=== PATIENT | female | born 1955 | race Caucasian/White ===

== ENCOUNTER → 2018-09-29 | Outpatient (CLI) | payer BC ==
--- NOTE | 2018-10-05 13:27 | MM ---
Reason for exam: clinical finding. Last mammogram was performed 4 months ago. History: Reductions of both breasts, 2015. Took estrogen for 10 years beginning at age 52. Physical Findings: Nurse did not find any significant physical abnormalities on exam. MG Diagnostic Mammo w CAD KATRINA Bilateral CC and MLO view(s) were taken. Prior study comparison: May 17, 2018, mammogram, performed at [facility]. April 17, 2017, mammogram, performed at [facility]. The breast tissue is heterogeneously dense. This may lower the sensitivity of mammography. There are benign appearing round, diffuse, regional calcifications bilaterally. There is chronic nodularity in the right breast. Asymmetric breast tissue in the right breast, stable posterior outer quadrant and left anterior outer quadrant. There is no discrete abnormality. These results were verbally communicated with the patient and result sheet given to the patient on 10/05/18. ASSESSMENT: Benign, BI-RAD 2 RECOMMENDATION: Routine screening mammogram of both breasts in 1 year.
--- NOTE | 2018-10-05 13:31 | USB ---
Reason for exam: additional evaluation requested from abnormal screening. History: Reductions of both breasts, 2015. Took estrogen for 10 years beginning at age 52. US Breast BILAT Right complete breast ultrasound includes all four quadrants, the retroareolar region and axilla. Finding demonstrates a 0.3 x 0.3 x 0.4cm lesion too small to characterize at 11 o'clock and a 1.9 x 0.5 x 3.4cm elongated, slightly hypoechoic at lateral upper position, relates to remainder dermis. Left complete breast ultrasound includes all four quadrants, the retroareolar region and axilla. Finding demonstrates no cystic or solid lesion seen. These results were verbally communicated with the patient and result sheet given to the patient on 10/05/18. ASSESSMENT: Probably benign, BI-RAD 3 RECOMMENDATION: Routine screening mammogram of both breasts in 1 year. Manage on a clinical basis with regard to skin based lesion no subcutaneous component.
== END | disposition home or self-care (01) ==
LOC: RADMAMWWP 12:10
PROVIDERS: ATTEND Internal Medicine Hematology & Oncology
DX: R68.89 Other general symptoms and signs (principal)
CPT/HCPCS: 77066

== ENCOUNTER 2018-09-30 13:29 | Day surgery (SDC) | payer BC ==
[2018-09-30] MEDS ORDERED: LIDOCAINE 1% 20 ML VIAL (10MG/ML) FOR IV START INTRADERMA ONE (14:24)
[2018-09-30] MEDS ORDERED: LACTATED RINGERS 1,000 ML IV ONE ×2 (14:24→16:45)
[2018-09-30] MEDS ORDERED: ONDANSETRON 4 MG/2 ML VIAL IVP ONE ×2 (14:27→16:16)
[2018-09-30] MEDS ORDERED: DEXAMETHASONE SOD PHOS (MDV) 100 MG/10 ML VIAL IVP ONE (14:27)
[2018-09-30] MEDS ORDERED: LIDOCAINE 1% INJ 10MG/ML (20 ML MDV) ONE (15:10)
[2018-09-30] MEDS ORDERED: ceFAZolin 1,000 MG VIAL ONE (15:10)
[2018-09-30] MEDS ORDERED: BUPIVACAIN-EPI 0.25%-1:200,000 30 ML VIAL SQ ONE ×3 (15:10→15:37)
[2018-09-30] MEDS ORDERED: PROPOFOL 10 MG/ML 20 ML VIAL IV ONE (15:10)
[2018-09-30] MEDS ORDERED: MIDAZOLAM 2 MG/2 ML VIAL ONE (15:10)
[2018-09-30] MEDS ORDERED: fentaNYL (PF) 50 MCG/ML 2 ML AMP ONE (15:10)
[2018-09-30] MEDS ORDERED: ceFAZolin 1,000 MG/50 ML BAG (PMX) IVPB ONE (15:11)
[2018-09-30] MEDS ORDERED: NALOXONE 0.4 MG/ML 1 ML VIAL IV PRN (15:52)
[2018-09-30] MEDS ORDERED: HYDROcodone/APAP 5-325MG 1 EACH TAB PO PRN (15:52)
--- NOTE | 2018-09-30 15:54 | P.OP ---
Date of Procedure: 09/30/18 Procedure(s) Performed: PREOPERATIVE DIAGNOSIS: Malignant skin lesion right flank POSTOPERATIVE DIAGNOSIS: Same PROCEDURE: Excision with intermediate closure 4cm SURGEON: Lili EBL: Minimal ANESTHESIA: General COMPLICATIONS: None OPERATIVE PROCEDURE: Patient placed in the operative table in the left decubitus position. The right flank was prepped and draped in usual sterile fashion. The skin was localized using Marcaine. An elliptical incision was made around the mass. Excision was 4 x 2 cm. Subcutaneous tissues were then reapproximated using 3-0 Vicryl sutures. The skin was closed using or 0 nylon sutures. Sterile dressings were applied. DISPOSITION: Stable to recovery room
[2018-09-30 16:10] VITALS: TEMP 97.6
[2018-09-30] MEDS ORDERED: METOCLOPRAMIDE 5 MG/ML 2 ML VIAL IVP ONE (16:24)
[2018-09-30 16:34] VITALS: RESP 16
[2018-09-30 17:08] VITALS: BP 164/86; PULSE 96
== END 2018-09-30 17:45 | disposition home or self-care (01) ==
LOC: OR 13:29
PROVIDERS: ATTEND Surgery
DX: C79.2 Secondary malignant neoplasm of skin (principal); C80.1 Malignant (primary) neoplasm, unspecified; I10 Essential (primary) hypertension; E66.9 Obesity, unspecified; Z68.33 Body mass index [BMI] 33.0-33.9, adult; Z85.820 Personal history of malignant melanoma of skin; K21.9 Gastro-esophageal reflux disease without esophagitis; R51 Headache; Z79.2 Long term (current) use of antibiotics; Z79.52 Long term (current) use of systemic steroids; Z79.899 Other long term (current) drug therapy; Z88.2 Allergy status to sulfonamides
CPT/HCPCS: 11603; 12032; J2250; J2765; J2405; J0690 ×2; J2001; J3010; J1100; J2704; 88305; 88341; 88342

== ENCOUNTER → 2018-10-08 | Outpatient (CLI) | payer BC ==
--- NOTE | 2018-10-09 08:00 | BMR ---
EXAMINATION TYPE: MR breast BILAT wo/w con DATE OF EXAM: 10/08/2018 COMPARISON: Diagnostic bilateral breast mammogram September 29, 2018 BI-RADS 2 and older outside mammo grams through 2017. Bilateral breast ultrasound September 29, 2018 BI-RADS 3. HISTORY: Rt breast nodules, Abn Tito CONTRAST: Multiplanar, multisequence images of the breasts were acquired utilizing 9.5 mL intravenous Gadavist gadolinium contrast. TECHNIQUE: A series of fat and water weighted images in the long and short axis views of both breasts are obtained in conjunction with dynamic contrast MRI with subtraction technique. Three-dimensional and additional postprocessing imaging is created on independent workstation and reviewed during offi cial interpretation of this study. FINDINGS: There is scattered fibroglandular cystic change noted bilaterally. Axial T2-weighted images show a few scattered and grouped thin-walled cysts bilaterally in both breasts likely corresponding to chronic nodularity on mammogram. Delayed postcontrast images show no suspicious intramammary adeno antonio bilaterally. There are a few benign subcentimeter lymph nodes towards the bilateral axilla. No concerning axillary adenopathy is present. No suspicious fat-containing masses are seen. There is mil d parenchymal background enhancement noted bilaterally. With regarding the right breast, there is no pathologic enhancing mass. No suspicious skin thickening is seen. Chest wall is intact. With regarding the left breast there is no obvious enhancing mass, focal distortion, or chest wall in vasion. No suspicious skin thickening is seen. IMPRESSION: No mammographic evidence for invasive malignancy in either breast. BI-RADS 2 benign findings right breast. BI-RADS 2 benign findings left breast. Recommendation: Manage dermal-based lesion on ultrasound right breast on clinical basis. Return to ro utine follow-up, patient is due for bilateral breast mammogram September 29, 2019 to be back on annual schedule.
== END | disposition home or self-care (01) ==
LOC: RADMRIMAIN 18:14
PROVIDERS: ATTEND Internal Medicine Hematology & Oncology
DX: C50.919 Malignant neoplasm of unspecified site of unspecified female breast (principal)
CPT/HCPCS: 77049; C8937; A9585

== ENCOUNTER → 2019-03-14 | Outpatient (CLI) | payer BC ==
--- NOTE | 2019-03-14 10:43 | BD ---
EXAMINATION TYPE: Axial Bone Density DATE OF EXAM: 03/14/2019 COMPARISON: NONE CLINICAL HISTORY: Breast cancer with hormone replacement therapy Height: 65.50 Weight: 204 FRAX RISK QUESTIONS: Alcohol (3 or more units per day): no Family History (Parent hip fracture): no Glucocorticoids (More than 3mos): no (Ex: prednisone, prednisolone, methylprednisolone, dexamethasone, and hydrocortisone). History of Fracture in Adulthood: yes, toe Secondary Osteoporosis: 1. Type 1 Diabetes: no 2. Hyperthyroidism: no 3. Menopause before 45: no 4. Malnutrition: no 5. Chronic liver disease: no Rheumatoid Arthritis: no Current Tobacco Use: no RISK FACTORS HISTORY OF: Back Surgery: yes, lower lumbar for a disc problem Family History of Osteoporosis: yes Active: yes Diet low in dairy products/other sources of calcium: no Postmenopausal woman: yes Take estrogen and/or progesterone medications: not now How long: estrogen age [age] Lost more than 2 inches in height since high school: no Frequent falls: no Poor Health: no Hyperparathyroidism: no Adrenal Insufficiency: no MEDICATIONS: Prednisone or other steroids: no Thyroid Medications: no Osteoporosis Medications: no Additional Medications: Arimidex, blood pressure med, cholesterol med Additional History: Breast CA EXAM MEASUREMENTS: Bone mineral densitometry was performed using the [employer] System. Bone mineral density as measured about the Lumbar spine is: ----- L1-L4(G/cm2): 1.239 T Score Values are as follows: ----- L2: 0.7 ----- L3: 0.9 ----- L4: 1.0 ----- L1-L4: 0.5 Bone mineral density BASELINE Bone mineral density about the R hip (g/cm2): 1.016 Bone mineral density about the L hip (g/cm2): 0.982 T Score values are as follows: -----R Neck: -0.2 -----L Neck: -0.4 -----R Total: 0.7 -----L Total: 0.6 Bone mineral density BASELINE - IMPRESSION: Normal (Values between +1 and -1 indicate normal bone mass). Consider repeating this study in 5 year s or sooner if there is some new clinical indication. NOTE: T-SCORE=SD OF THE YOUNG ADULT MEAN.
== END | disposition home or self-care (01) ==
LOC: RADBDWWP 09:21
PROVIDERS: ATTEND Internal Medicine Hematology & Oncology
DX: C50.811 Malignant neoplasm of overlapping sites of right female breast (principal); N95.1 Menopausal and female climacteric states; Z79.890 Hormone replacement therapy
CPT/HCPCS: 77080

== ENCOUNTER → 2020-07-16 | Outpatient (CLI) | payer MEDICARE ==
--- NOTE | 2020-07-16 12:04 | CT ---
EXAMINATION TYPE: CT ChestAbdPelvis wo con DATE OF EXAM: 07/16/2020 COMPARISON: Correlation MRI 10/08/2018, outside PET/CT 09/15/2018 HISTORY: 64-year-old female C50.919, Breast cancer, observe for METS TECHNIQUE: Contiguous axial scanning of the chest, abdomen, and pelvis without IV contrast. Coronal a nd sagittal reconstructions performed. CT DLP: 1280 mGycm Automated exposure control for dose reduction was used. FINDINGS: CHEST: The heart is normal size without pericardial effusion. Mild aortic valvular calcifications are presen t. There is variant direct takeoff of the left vertebral artery directly from the aortic arch. Upper aurelia cending thoracic aorta borderline ectatic at 3.0 cm. Scattered focal asymmetries within the breasts appear similar compared to 09/15/2018 though there is in terval lumpectomy change inferior right breast and posttherapy right-sided skin thickening. Irregular density at the site of surgical clips in the inferior right breast likely post surgical scar. Additi onal surgical clips along the right lateral mid chest. No axillary, internal mammary chain, hilar, or mediastinal lymphadenopathy seen along for noncontrast CT. Tiny 5 mm low right axillary lymph node unchanged from 09/15/2018. No consolidation or pleural effusion. ABDOMEN: Tiny hiatal hernia. Noncontrast appearance of the liver, adrenal glands, spleen with a lateral splenule, and pancreas moises w no gross abnormality. No nephrolithiasis or hydronephrosis identified on either side. No dilated small bowel, free fluid, or free air. No mesenteric or retroperitoneal lymphadenopathy. Oral contrast has progressed to the hepatic flexure of the colon. There is moderate stool burden. Lef t-sided colonic diverticulosis, greatest in the sigmoid colon. No pericolonic inflammatory change. PELVIS: Underdistention of the bladder limits its evaluation. Bilateral pelvic phleboliths. Uterus surgically absent. Left ovary is visualized. Right ovary not seen. No abnormal fluid collection in the pelvis o r pelvic lymphadenopathy. BONES: Degenerative changes lower lumbar spine. No osseous destructive process. IMPRESSION: 1. STATUS POST RIGHT INFERIOR LUMPECTOMY NEAR THE INFRAMAMMARY FOLD AND POST THERAPY CHANGE. ADDITION AL SURGICAL CHANGE ALONG THE RIGHT LATERAL MID CHEST. 2. ALLOWING FOR NONCONTRAST CT, NO DISCRETE METASTATIC DISEASE IS IDENTIFIED. 3. LEFT-SIDED COLONIC DIVERTICULOSIS, GREATEST IN THE SIGMOID COLON. NO EVIDENCE FOR ACUTE DIVERTICUL ITIS. TINY HIATAL HERNIA.
== END | disposition home or self-care (01) ==
LOC: RADCTMAIN 10:38
PROVIDERS: ATTEND Internal Medicine Hematology & Oncology
DX: K57.30 Diverticulosis of large intestine without perforation or abscess without bleeding (principal); K44.9 Diaphragmatic hernia without obstruction or gangrene; C50.811 Malignant neoplasm of overlapping sites of right female breast; Z88.2 Allergy status to sulfonamides; Z91.048 Other nonmedicinal substance allergy status; Z90.11 Acquired absence of right breast and nipple; Z98.890 Other specified postprocedural states
CPT/HCPCS: 71250; 74176

== ENCOUNTER → 2021-03-25 | Outpatient (CLI) | payer MEDICARE ==
--- NOTE | 2021-03-25 16:51 | BD ---
EXAMINATION TYPE: Axial Bone Density DATE OF EXAM: 03/25/2021 COMPARISON: 03/14/2019 CLINICAL HISTORY: postmenopausal screening Height: 65 Weight: 202.7 FRAX RISK QUESTIONS: Alcohol (3 or more units per day): no Family History (Parent hip fracture): no Glucocorticoids (More than 3mos): no (Ex: prednisone, prednisolone, methylprednisolone, dexamethasone, and hydrocortisone). History of Fracture in Adulthood: yes Secondary Osteoporosis: 1. Type 1 Diabetes: no 2. Hyperthyroidism: no 3. Menopause before 45: no 4. Malnutrition: no 5. Chronic liver disease: no Rheumatoid Arthritis: no Current Tobacco Use: no RISK FACTORS HISTORY OF: Surgery to Spine/Hip(right/left)/Wrist (right/left): no Family History of Osteoporosis: yes Active: yes Diet low in dairy products/other sources of calcium: no Postmenopausal woman: age 49 Lost more than 2 inches in height since high school: yes MEDICATIONS: corag, verapamil, lipitor, prilosec, aspirin, Arimidex Additional History: EXAM MEASUREMENTS: Bone mineral densitometry was performed using the [employer] System. Bone mineral density as measured about the Lumbar spine is: ----- L1-L4(G/cm2): 1.178 T Score Values are as follows: ----- L2: -0.1 ----- L3: 0.5 ----- L4: 1.0 ----- L1-L4: 0.0 Bone mineral density has: decreased -3.7 % since study of: 03.14.2019 Bone mineral density about the R hip (g/cm2): 0.972 Bone mineral density about the L hip (g/cm2): 0.927 T Score values are as follows: -----R Neck: -0.5 -----L Neck: -0.8 -----R Total: 0.1 -----L Total: -0.1 Bone mineral density has: decreased -7.2 % since study of: 03.14.2019 IMPRESSION: Normal (Values between +1 and -1 indicate normal bone mass). Consider repeating this study in 5 year s or sooner if there is some new clinical indication. NOTE: T-SCORE=SD OF THE YOUNG ADULT MEAN.
== END | disposition home or self-care (01) ==
LOC: RADBDWWP 08:07
PROVIDERS: ATTEND Internal Medicine Hematology & Oncology
DX: Z13.820 Encounter for screening for osteoporosis (principal); Z78.0 Asymptomatic menopausal state
CPT/HCPCS: 77080

== ENCOUNTER → 2022-05-08 | Day surgery (SDC) | payer MEDICARE ==
[2022-05-05 14:54] VITALS: BMI 26.6
[~2022-05-08] MED LIST: ACETAMINOPHEN IV (For NPO) 1,000 MG/100 ML VIAL ONE; ACETAMINOPHEN TAB 500 MG TAB PO PRN; DEXAMETHASONE SOD PHOSPHATE 4 MG/ML 1 ML VIAL IV ONE; FAMOTIDINE 20 MG/2 ML VIAL IV ONE; HEPARIN SODIUM,PORCINE 100 UNIT/ML 5 ML VIAL IV ONE; HEPARIN SODIUM,PORCINE 5,000 UNIT/ML 1 ML VIAL ONE; HEPARIN SODIUM,PORCINE/PF 5,000 UNIT/0.5 ML SYRINGE SQ PRN; HYDROmorphone 0.5 MG/0.5 ML SYRINGE IVP PRN; LACTATED RINGERS 1,000 ML IV SCH; LIDOCAINE (PF) 10 MG/ML 2 ML VIAL SQ ONE; LIDOCAINE 1% (10MG/ML) FOR IV START INTRADERMA PRN; LIDOCAINE 2% INJ 20 MG/ML (2 ML VIAL) ONE; NALOXONE 0.4 MG/ML 1 ML VIAL IV PRN; ONDANSETRON 4 MG/2 ML VIAL IVP ONE; ONDANSETRON 4 MG/2 ML VIAL IVP PRN; ONDANSETRON 4 MG/2 ML VIAL ONE; PHENYLEPHRINE-0.9% NACL SYG 1,000 MCG/10 ML SYRINGE ONE; PROPOFOL 10 MG/ML 20 ML VIAL IV ONE; Pre Op ABX Message 1 EACH MISC MISCELLANE ONE; SODIUM CHLORIDE 0.9% 100 ML with ceFAZolin 2,000 MG IV ONE; SUCCINYLCHOLINE CHLORIDE 200 MG/10 ML VIAL IV ONE; diphenhydrAMINE 50 MG/ML 1 ML VIAL ONE; fentaNYL (PF) 50 MCG/ML 2 ML AMP ONE
--- NOTE | 2022-05-08 12:36 | P.GSHP ---
History of Present Illness H&P Date: 05/08/22 Chief Complaint: Esophageal cancer 66-year-old female recently diagnosed with esophageal cancer. Patient will be started on neoadjuvant chemotherapy soon. Uric today for Port-A-Cath placement. She has not had a port placed previously. Patient with recent placement of jej unostomy feeding tube. Past Medical History Past Medical History: Cancer, GERD/Reflux, Hyperlipidemia, Hypertension Additional Past Medical History / Comment(s): Hx right breast cancer in 2019. Current esophageal cancer. History of Any Multi-Drug Resistant Organisms: None Reported Past Surgical History: Breast Surgery, Cholecystectomy, Hysterectomy Additional Past Surgical History / Comment(s): Breast reduction then 3 breast surgeries for cancer. Past Anesthesia/Blood Transfusion Reactions: No Reported Reaction, Postoperative Nausea & Vomiting (PONV) Past Psychological History: No Psychological Hx Reported Smoking Status: Never smoker Past Alcohol Use History: None Reported Past Drug Use History: None Reported - Past Family History Mother Family Medical History: Coronary Artery Disease (CAD), Hypertension Additional Family Medical History / Comment(s): FATHER FROM A HEART ATTACK, SISTER ALSO HAS HEART PROBLEMS. Medications and Allergies Home Medications Medication Instructions Recorded Confirmed Type Atorvastatin Calcium [Lipitor] 40 mg PO HS 09/30/18 05/05/22 History Omeprazole [PriLOSEC] 20 mg PO QAM 09/30/18 05/05/22 History Verapamil [Isoptin] 180 mg PO QAM 09/30/18 05/05/22 History carvediloL [Coreg] 1 tab PO BID 09/30/18 05/05/22 History Anastrozole [Arimidex] 1 mg PO DAILY 05/05/22 05/05/22 History Allergies Allergy/AdvReac Type Severity Reaction Status Date / Time Sulfa (Sulfonamide Allergy Rash/Hives Verified 05/08/22 12:25 Antibiotics) Surgical - Exam Vital Signs Temp Pulse Resp BP Pulse Ox 98.4 F 91 16 112/67 100 05/08/22 12:30 05/08/22 12:30 05/08/22 12:30 05/08/22 12:30 05/08/22 12:30 Physical exam: General: Well-developed, well-nourished HEENT: Normocephalic, sclerae nonicteric Abdomen: Nontender, nondistended, J-tube in place Extremities: No edema Neuro: Alert and oriented Assessment and Plan (1) Esophageal cancer Narrative/Plan: This 66-year-old recently diagnosed with esophageal cancer. We'll proceed with Port-A-Cath placement at this time. Risks of bleeding, infection, DVT, pneumothorax, catheter malfunction, anesthesia related complications were discussed. The patient understands and wishes to proceed. Current Visit: Yes Status: Acute Code(s): C15.9 - MALIGNANT NEOPLASM OF ESOPHAGUS, UNSPECIFIED SNOMED Code(s): 454688257
[2022-05-08 14:02] VITALS: TEMP 97.6
--- NOTE | 2022-05-08 14:13 | FL ---
EXAMINATION TYPE: FL guided central line placemt HISTORY: Fluoroscopy time Impression: 1. Fluoroscopy support provided to the referring physician.
--- NOTE | 2022-05-08 14:15 | P.OP ---
Date of Procedure: 05/08/22 Procedure(s) Performed: PREOPERATIVE DIAGNOSIS: Esophageal cancer POSTOPERATIVE DIAGNOSIS: Same PROCEDURE: Port-A-Cath placement with fluoroscopic and ultrasound guidance SURGEON: Lili EBL: Minimal ANESTHESIA: General COMPLICATIONS: None OPERATIVE PROCEDURE: Patient was brought and placed on the operative table in the supine position. The patient was placed under general anesthesia per anesthesia that time. The chest and neck were prepped and draped in usual sterile fashion. The ultrasound probe was used to identify the location of the right internal jugular vein. The skin was localized with lidocaine. The Seldinger needle was advanced into the IJ under ultrasound guidance. The wire was advanced through the needle under fluoroscopic guidance into the superior vena cava. A port pocket was created in the right infraclavicular location. The catheter was tunneled from the wire entrance site to the port pocket. The port was then connected to the catheter. The dilator introducer was threaded over the guidewire. The guidewire and dilator were then removed. The catheter was advanced through the introducer and introducer was then removed. The tip was seen to be in the right atrial junction via fluoroscopy. A picture of the radiograph showing the tip at the radial digital junction was taken. Port was flushed with both saline and a Hep-Lock solution. There was good flow both in and out of the port. The port was sutured in underlying tissues using 3-0 silk sutures. The subcutaneous tissues were reapproximated using 3-0 Vicryl sutures and the skin at both locations using 4-0 Monocryl sutures. Skin glue and sterile dressings then applied. DISPOSITION: Stable to recovery room
[2022-05-08 15:14] VITALS: BP 121/72; PULSE 72; RESP 16
--- NOTE | 2022-05-08 15:42 | XR ---
EXAMINATION TYPE: XR chest 1V confirm line [facility] DATE OF EXAM: 05/08/2022 COMPARISON: NONE HISTORY: Port-A-Cath insertion TECHNIQUE: Single frontal view of the chest is obtained. FINDINGS: Limited inspiration with no sizable pneumothorax. Mediport seen with the tip overlying the right atrium. Subsegmental changes at both lung bases with small left effusion. Contrast within the left colon incidentally noted. Arthropathy of the shoulders. Surgical clips overlying the right breas t or axilla suggested. IMPRESSION: 1. No pneumothorax. 2. Bilateral subsegmental consolidation or infiltrate with small left effusion.
== END ==
LOC: OR 12:11
PROVIDERS: ATTEND Surgery
DX: C15.4 Malignant neoplasm of middle third of esophagus (principal); Z85.3 Personal history of malignant neoplasm of breast; I10 Essential (primary) hypertension; E78.5 Hyperlipidemia, unspecified; K21.9 Gastro-esophageal reflux disease without esophagitis; Z88.2 Allergy status to sulfonamides; Z91.041 Radiographic dye allergy status; Z79.890 Hormone replacement therapy; Z79.899 Other long term (current) drug therapy
CPT/HCPCS: 36561; 77001; 76937; C1788; J0330; J1200; J2001 ×2; J1644; J1642; J1100; J2405; J0690; J3010; J0131; J2370; J2704

== ENCOUNTER → 2022-09-05 | Outpatient (CLI) | payer MEDICARE ==
--- NOTE | 2022-09-05 14:20 | PE ---
EXAMINATION TYPE: PET CT fusion whole body DATE OF EXAM: 09/05/2022 COMPARISON: Outside PET/CT April 25, 2022 and older studies. HISTORY: Esophageal cancer diagnosed February 2022 completed chemotherapy and radiation treatment in [facility] 2021 TECHNIQUE: Following the intravenous administration of 11.77 mCi of F-18 FDG, whole body images are performed from the skull base to the midthigh. Images are reviewed on the computer in the coronal, a xial, and sagittal planes. Reconstructed rotating images are created on independent workstation and reviewed on the computer. A localization and attenuation correction CT is performed in conjunction with the PET scan. Blood glucose level equals 103 SCAN: Subsequent Scan FINDINGS: Suboptimal as outside most recent PET CT does not include old report and only includes axia l images. SKULL BASE AND NECK: No areas of abnormal hypermetabolic uptake. CHEST, MEDIASTINUM, AND HILAR REGION: Moderate concentric wall thickening in the mid to distal esopha caroline beginning below the goyo extending to nearly the level of diaphragm has mild abnormal hypermeta bolic uptake, max SUV is 3.64 on axial image 89. No additional areas of abnormal hypermetabolic uptake in the thorax. ABDOMEN AND PELVIS: Normal excretion is seen. There is level of umbilicus irregular soft tissue and p ossible focal left-sided fluid with abnormal hypermetabolic uptake, max SUV is. Soft tissue infection at this level cannot be excluded. Correlate clinically. Adjacent to this there is left-sided periton eal dialysis catheter with focal lateral abdominal wall defect having mild hypermetabolic uptake, cor relate for recent procedure or inflammation at this level. No suspicious hypermetabolic uptake in the abdomen or pelvis. OSSEOUS STRUCTURES: No suspicious hypermetabolic uptake in osseous structures. OTHER CT: There is right internal jugular Mediport catheter terminating in SVC. Uterus is surgically absent. Scattered pelvic phleboliths are seen. IMPRESSION: Some residual active neoplasm along the mid to distal esophagus cannot be excluded. No ac tive metastatic disease is noted.
== END | disposition home or self-care (01) ==
LOC: RADPETMAIN 09:43
PROVIDERS: ATTEND Internal Medicine Hematology & Oncology
DX: C15.4 Malignant neoplasm of middle third of esophagus (principal); Z92.3 Personal history of irradiation; Z92.21 Personal history of antineoplastic chemotherapy
CPT/HCPCS: 78816; A9552

== ENCOUNTER → 2023-04-07 | Outpatient (CLI) | payer MEDICARE ==
--- NOTE | 2023-04-07 15:57 | BD ---
EXAMINATION TYPE: Axial Bone Density DATE OF EXAM: 04/07/2023 CLINICAL HISTORY: 67 years old Female. ICD-10 CODE: C50.511 BREAST CANCER Height: 63.5 in Weight: 137 lbs FRAX RISK QUESTIONS: Secondary Osteoporosis: 3. Menopause before 45: age 34 partial hysterectomy RISK FACTORS HISTORY OF: Family History of Osteoporosis: yes Active: low activity Diet low in dairy products/other sources of calcium: yes Postmenopausal woman: age 34 partial hysterectomy Take estrogen and/or progesterone medications: not now How long: took ert for 20 years Lost more than 2 inches in height since high school: yes 08/11" MEDICATIONS: Additional Medications: vit d, heart meds, arimidex Additional History: breast cancer with chemo; esophagus cancer with chemo and radiation EXAM MEASUREMENTS: Bone mineral densitometry was performed using the [employer] System. Bone mineral density as measured about the Lumbar spine is: ----- L1-L4(G/cm2): 1.141 T Score Values are as follows: ----- L1: -1.9 ----- L2: -0.6 ----- L3: 0.4 ----- L4: 0.1 ----- L1-L4: -0.3 Z Score Values are as follows: ----- L1: -0.2 ----- L2: 1.2 ----- L3: 2.2 ----- L4: 1.9 ----- L1-L4: -0.3 Bone mineral density has: Decreased -3.1% since study of: 03/25/2021 Bone mineral density about the R hip (g/cm2): 0.850 Bone mineral density about the L hip (g/cm2): 0.840 T Score values are as follows: -----R Neck: -1.7 -----L Neck: -1.6 -----R Total: -1.3 -----L Total: -1.3 Z Score values are as follows: -----R Neck: 0.0 -----L Neck: 0.0 -----R Total: 0.2 -----L Total: 0.1 Bone mineral density has: Decreased -16.3% since study of: 03/25/2021 FRAX%s: The graph provided illustrates a 10.2% chance for a major osteoporotic fx and a 1.5% chance f or the hips probability for fx in 10 years time. IMPRESSION: Osteopenia (T Score between -2.5 and -1). There is slightly increased risk of fracture and the patient may be considered for treatment. Re-Screen 2-5 years. NOTE: T-SCORE=SD OF THE YOUNG ADULT MEAN.
== END | disposition home or self-care (01) ==
LOC: RADBDWWP 14:41
PROVIDERS: ATTEND Internal Medicine Hematology & Oncology
DX: C50.511 Malignant neoplasm of lower-outer quadrant of right female breast (principal); M85.89 Other specified disorders of bone density and structure, multiple sites; C15.4 Malignant neoplasm of middle third of esophagus; E87.6 Hypokalemia; R11.0 Nausea; R63.4 Abnormal weight loss
CPT/HCPCS: 77080

== ENCOUNTER 2024-04-07 10:55 | Day surgery (SDC) | payer MEDICARE ==
[~2024-04-07 10:55] MED LIST changes: -ACETAMINOPHEN IV (For NPO) 1,000 MG/100 ML VIAL ONE; -ACETAMINOPHEN TAB 500 MG TAB PO PRN; -DEXAMETHASONE SOD PHOSPHATE 4 MG/ML 1 ML VIAL IV ONE; -FAMOTIDINE 20 MG/2 ML VIAL IV ONE; -HEPARIN SODIUM,PORCINE 100 UNIT/ML 5 ML VIAL IV ONE; -HEPARIN SODIUM,PORCINE 5,000 UNIT/ML 1 ML VIAL ONE; -HEPARIN SODIUM,PORCINE/PF 5,000 UNIT/0.5 ML SYRINGE SQ PRN; -LACTATED RINGERS 1,000 ML IV SCH; -LIDOCAINE (PF) 10 MG/ML 2 ML VIAL SQ ONE; -LIDOCAINE 1% (10MG/ML) FOR IV START INTRADERMA PRN; -LIDOCAINE 2% INJ 20 MG/ML (2 ML VIAL) ONE; -NALOXONE 0.4 MG/ML 1 ML VIAL IV PRN; -ONDANSETRON 4 MG/2 ML VIAL IVP ONE; -ONDANSETRON 4 MG/2 ML VIAL IVP PRN; -ONDANSETRON 4 MG/2 ML VIAL ONE; -PHENYLEPHRINE-0.9% NACL SYG 1,000 MCG/10 ML SYRINGE ONE; -PROPOFOL 10 MG/ML 20 ML VIAL IV ONE; -Pre Op ABX Message 1 EACH MISC MISCELLANE ONE; -SODIUM CHLORIDE 0.9% 100 ML with ceFAZolin 2,000 MG IV ONE; -SUCCINYLCHOLINE CHLORIDE 200 MG/10 ML VIAL IV ONE; -diphenhydrAMINE 50 MG/ML 1 ML VIAL ONE; -fentaNYL (PF) 50 MCG/ML 2 ML AMP ONE
[2024-04-07 11:28] VITALS: RESP 18; TEMP 98.5
[2024-04-07] MEDS: ACETAMINOPHEN TAB 500 MG TAB PO PRN (11:34)
[2024-04-07] MEDS: ONDANSETRON 4 MG/2 ML VIAL IVP ONE (11:48)
[2024-04-07] MEDS: HEPARIN SODIUM,PORCINE 5,000 UNIT/ML 1 ML VIAL SQ PRN (11:49)
[2024-04-07] MEDS: DEXAMETHASONE SOD PHOSPHATE 4 MG/ML 1 ML VIAL IV ONE (11:49)
[2024-04-07] MEDS: IV FLUID CONTINUATION 1,000 ML IV ONE (11:55)
[2024-04-07] MEDS: LACTATED RINGERS 1,000 ML IV SCH (11:56)
[2024-04-07] MEDS ORDERED: MIDAZOLAM 2 MG/2 ML VIAL ONE (12:30)
[2024-04-07] MEDS ORDERED: PROPOFOL 10 MG/ML 20 ML VIAL IV ONE (12:30)
[2024-04-07] MEDS ORDERED: LIDOCAINE 1% INJ 10MG/ML (20 ML MDV) ONE (12:30)
--- NOTE | 2024-04-07 12:32 | P.GSHP ---
History of Present Illness H&P Date: 04/07/24 Chief Complaint: Esophageal cancer 68-year-old female here today for Port-A-Cath removal. Patient has not used the catheter for quite some time. No issues with the catheter. Past Medical History Past Medical History: Cancer, GERD/Reflux Additional Past Medical History / Comment(s): Hx right breast cancer in 2019. hx esophageal cancer. chemo and radiation - completed 06/2022. irregular heart beat takes coreg. History of Any Multi-Drug Resistant Organisms: None Reported Past Surgical History: Breast Surgery, Cholecystectomy, Hysterectomy Additional Past Surgical History / Comment(s): Breast reduction then 3 breast surgeries for cancer. esophageal reconstruction surgery for cancer. colonoscopy Past Anesthesia/Blood Transfusion Reactions: No Reported Reaction, Postoperative Nausea & Vomiting (PONV) Additional Past Anesthesia/Blood Transfusion Reaction / Comment(s): No blood transfusions. Smoking Status: Never smoker - Past Family History Mother Family Medical History: Coronary Artery Disease (CAD), Hypertension Additional Family Medical History / Comment(s): FATHER FROM A HEART ATTACK, SISTER ALSO HAS HEART PROBLEMS. Medications and Allergies Home Medications Medication Instructions Recorded Confirmed Type carvediloL [Coreg] 3.125 tab PO BID 09/30/18 04/06/24 History Anastrozole [Arimidex] 1 mg PO DAILY 05/05/22 04/06/24 History Unk Multi Vitamin 1 tab PO DAILY 04/06/24 04/06/24 History Unk Vitamin D3 1 tab PO DAILY 04/06/24 04/06/24 History Allergies Allergy/AdvReac Type Severity Reaction Status Date / Time Sulfa (Sulfonamide Allergy Rash/Hives Verified 04/07/24 11:23 Antibiotics) betadine skin wash Allergy Rash/Hives Uncoded 04/06/24 10:34 Surgical - Exam Vital Signs Temp Pulse Resp BP Pulse Ox 98.5 F 82 18 112/64 98 04/07/24 11:27 04/07/24 11:27 04/07/24 11:27 04/07/24 11:27 04/07/24 11:27 Physical exam: General: Well-developed, well-nourished HEENT: Normocephalic, sclerae nonicteric Abdomen: Nontender, nondistended Extremities: No edema Neuro: Alert and oriented Chest: Right sided Port-A-Cath in place Assessment and Plan (1) Esophageal cancer Narrative/Plan: Will proceed with Port-A-Cath removal at this time. Risks of bleeding, infection, DVT, pneumothorax, catheter malfunction, anesthesia related complications were discussed. The patient understands and wishes to proceed. Current Visit: No Status: Acute Code(s): C15.9 - MALIGNANT NEOPLASM OF ESOPHAGUS, UNSPECIFIED SNOMED Code(s): 698213673
[2024-04-07] MEDS: LIDOCAINE 1% INJ 10MG/ML (20 ML MDV) SQ ONE ×2 (12:43→12:47)
[2024-04-07 13:23] VITALS: BP 126/79; PULSE 76
[2024-04-07] MEDS ORDERED: NALOXONE 0.4 MG/ML 1 ML VIAL IV PRN (13:27)
--- NOTE | 2024-04-07 13:28 | P.OP ---
Date of Procedure: 04/07/24 Procedure(s) Performed: PREOPERATIVE DIAGNOSIS: Esophageal cancer POSTOPERATIVE DIAGNOSIS: Same PROCEDURE: Port-A-Cath removal SURGEON: Lili EBL: Minimal ANESTHESIA: Sedation COMPLICATIONS: None OPERATIVE PROCEDURE: Patient was placed in the supine position. The patient was sedated per anesthesia that time. The chest was prepped and draped in the usual sterile fashion. The skin was localized with Marcaine solution. The previous incision was re-incised using a scalpel. The port was easily excised using accommodation of blunt dissection sharp dissection and electrocautery. The subcutaneous tissues were reapproximated using 3-0 Vicryl sutures. The skin was reapproximated using 4-0 Monocryl sutures. Skin glue was then applied. DISPOSITION: Stable to recovery room
== END 2024-04-07 13:52 | disposition home or self-care (01) ==
LOC: OR 10:55
PROVIDERS: ATTEND Surgery
DX: C15.4 Malignant neoplasm of middle third of esophagus (principal); K21.9 Gastro-esophageal reflux disease without esophagitis; Z79.811 Long term (current) use of aromatase inhibitors; Z85.3 Personal history of malignant neoplasm of breast; Z88.2 Allergy status to sulfonamides; Z90.49 Acquired absence of other specified parts of digestive tract; Z90.710 Acquired absence of both cervix and uterus; Z79.899 Other long term (current) drug therapy; Z88.8 Allergy status to other drugs, medicaments and biological substances